=== PATIENT | male | born 1965 | race Caucasian/White ===

== ENCOUNTER 2018-10-15 12:22 | Emergency (ER) | payer MEDICAID ==
[2018-10-15 13:22] LABS: HEMATOCRIT 45.4 % (42.0-52.0); HEMOGLOBIN 13.8 gm/dl (14.0-18.0); MEAN CELL VOLUME 95.8 fl (81-97); MEAN CORPUSCULAR HEMOGLOBIN 29.1 pg (27-33); MEAN CORPUSCULAR HGB CONC 30.4 g/dl (32-36); MEAN PLATELET VOLUME 9.8 fl (7.4-10.4); PLATELET COUNT 195 K/uL (130-400); RED BLOOD COUNT 4.74 M/uL (4.40-5.70); RED CELL DISTRIBUTION WIDTH 16.3 % (11.5-14.5); WHITE BLOOD COUNT W/O DIFF 7.9 K/uL (4.2-12.2)
[2018-10-15 13:32] LABS: INR 2.6; PROTHROMBIN TIME (PATIENT) 25.2 SECONDS (9.5-12.1)
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
--- NOTE | 2018-10-17 12:22 | US VENOUS DOPPLER REPORT ---
EXAM: ULTRASOUND VENOUS DOPPLER LOWER EXT RT HISTORY: DEEP VEIN THROMBOSIS. TECHNIQUE: Sonographic evaluation of the deep venous system of the right lower extremity was performed with the addition of Doppler, compression, and augmentation. FINDINGS: There is normal blood flow, compression, and augmentation identified in the deep venous system of the right lower extremity. IMPRESSION: NEGATIVE FOR DEEP VEIN THROMBOSIS IN THE RIGHT LOWER EXTREMITY. JOB NUMBER: [id number] MTDD
== END 2018-10-15 14:40 | disposition home or self-care (01) ==
LOC: ER 12:22
DX: L03.115 Cellulitis of right lower limb (principal); M79.661 Pain in right lower leg; E11.9 Type 2 diabetes mellitus without complications; J44.9 Chronic obstructive pulmonary disease, unspecified; I50.9 Heart failure, unspecified; I48.91 Unspecified atrial fibrillation; F17.210 Nicotine dependence, cigarettes, uncomplicated; Z79.01 Long term (current) use of anticoagulants
CPT/HCPCS: 85027; 85610; 99283; 99284

== ENCOUNTER 2018-11-30 18:55 | Emergency (ER) | payer MEDICAID ==
[2018-11-30] MEDS ORDERED: ACETAMINOPHEN 325 MG TAB PO ONE (19:33)
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
[2018-11-30] MEDS ORDERED: WARFARIN 5 MG TAB PO ONE (20:11)
--- NOTE | 2018-12-04 08:30 | RADIOLOGY REPORT ---
EXAM: CHEST, TWO VIEWS HISTORY: LOW OXYGEN. TECHNIQUE: Two views of the chest were obtained. No comparison examinations. FINDINGS: The patient has previously undergone median sternotomy and aortic and mitral valvuloplasty. There is mild cardiomegaly. The pulmonary vessels are not significantly distended. There are no effusions. There is no evidence of lobar infiltrate. There are no parenchymal masses. There is evidence of a left second rib fracture, likely remote. There are sclerotic changes in the right humeral head, either degenerative or post traumatic, but incompletely evaluated on the chest radiograph. IMPRESSION: POSTOPERATIVE CHANGE. CARDIOMEGALY WITHOUT OVERT FAILURE OR INFILTRATE. JOB NUMBER: [id number] [facility]
== END 2018-11-30 20:47 | disposition home or self-care (01) ==
LOC: ER 18:55
DX: R09.02 Hypoxemia (principal); G89.18 Other acute postprocedural pain; Z79.01 Long term (current) use of anticoagulants; Z95.2 Presence of prosthetic heart valve; I48.91 Unspecified atrial fibrillation; E11.9 Type 2 diabetes mellitus without complications; Z79.84 Long term (current) use of oral hypoglycemic drugs; F17.200 Nicotine dependence, unspecified, uncomplicated; J44.9 Chronic obstructive pulmonary disease, unspecified
CPT/HCPCS: 71046; 84484; 93005; 93010; 94760; 99284

== ENCOUNTER 2019-02-07 18:16 | Emergency (ER) | payer MEDICAID ==
[2019-02-07] MEDS ORDERED: 0.9 % SODIUM CHLORIDE 1000ML 500 ML IV SCH (18:30)
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
[2019-02-07 18:35] LABS: BASO % 0.4 % (0-6); EOS % 3.9 % (0-6); GRAN % 71.9 % (47-80); HEMATOCRIT 47.1 % (42.0-52.0); HEMOGLOBIN 14.9 gm/dl (14.0-18.0); LYMPH % 13.9 % (16-45); MEAN CELL VOLUME 95.3 fl (81-97); MEAN CORPUSCULAR HEMOGLOBIN 30.2 pg (27-33); MEAN CORPUSCULAR HGB CONC 31.6 g/dl (32-36); MEAN PLATELET VOLUME 9.8 fl (7.4-10.4); MONO % 9.9 % (0-9); PLATELET COUNT 202 K/uL (130-400); RED BLOOD COUNT 4.94 M/uL (4.40-5.70); RED CELL DISTRIBUTION WIDTH 16.1 % (11.5-14.5)
[2019-02-07 18:49] LABS: INR 1.9; PROTHROMBIN TIME (PATIENT) 18.5 SECONDS (9.5-12.1)
[2019-02-07 18:50] LABS: BLOOD UREA NITROGEN 23 mg/dL (6-20); CREATININE 1.3 mg/dL (0.7-1.2); EST GLOMERULAR FILTRATION RATE > 60 mL/min
[2019-02-07 18:51] LABS: TOTAL PROTEIN 7.4 g/dL (6.6-8.7)
[2019-02-07 18:53] LABS: GLUCOSE,RANDOM 128 mg/dL (74-109)
[2019-02-07 18:56] LABS: ALB/GLOB RATIO 1.3 (1.1-1.8); ALBUMIN 4.2 g/dL (4.0-5.0); ALKALINE PHOSPHATASE 75 U/L (40-129); ALT/SGPT 14 U/L (<41); AST/SGOT 22 U/L (10.0-50.0)
--- NOTE | 2019-02-11 10:25 | RADIOLOGY REPORT ---
EXAM: CHEST, TWO VIEWS HISTORY: ELEVATED PULSE. TECHNIQUE: PA and lateral views of the chest were obtained. Comparison: Two view chest 11/30/18. FINDINGS: Postop sternotomy with valve prosthesis as before. Stable cardiomegaly. Lower thoracic dextroscoliosis. No definite acute infiltrate seen and no pleural effusion or pneumothorax evident. Advanced degenerative arthritis right shoulder and less prominent degenerative arthritis left shoulder. IMPRESSION: 1. POSTOP STERNOTOMY WITH VALVE PROSTHESES. 2. THORACIC DEXTROSCOLIOSIS. 3. STABLE CARDIOMEGALY. 4. NO ACUTE INFILTRATE IDENTIFIED. [facility]BER: [id number] [facility]
--- NOTE | 2019-02-11 10:54 | CT ANGIOGRAM REPORT ---
EXAM: CTA OF THE CHEST FOR PE WITH POST PROCESSING HISTORY: TACHYCARDIA, POSSIBLE PE. TECHNIQUE: CTA of the chest was performed following IV contrast administration. Please see the medial record for IV contrast specifics. Post processing on an independent workstation was performed with multiple 3D MIP series obtained. Comparison: No prior chest CT. Comparison is made with the chest x-ray from earlier this evening on 02/07/19. FINDINGS: There is some mild motion artifact effecting the peripheral pulmonary arterial tree in the lower lungs particularly on the left. Allowing for this, no definite PE identified. There is mild aneurysmal dilatation of the ascending aorta measuring up to about 4.2 cm in size. The descending thoracic aorta does not appear aneurysmally dilated. 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 Some coronary artery calcification is present. There is a small amount of fluid in the superior pericardial recess. Mild cardiomegaly. There are probably prosthetic mitral and aortic valves creatic artifact. Postop sternotomy. No pneumothorax is seen. No acute alveolar infiltrate identified. Advanced degenerative arthritis at the right glenohumeral joint and less so at the left glenohumeral joint. Lower thoracic dextroscoliosis with hypertrophic spurring in the spine. IMPRESSION: 1. NO DEFINITE PE IDENTIFIED. 2. MILD ANEURYSMAL DILATATION OF THE ASCENDING AORTA. 3. POSTOP STERNOTOMY WITH PROSTHETIC AORTIC AND MITRAL VALVES. 4. SOME CORONARY ARTERY CALCIFICATION. 5. THORACIC DEXTROSCOLIOSIS WITH DEGENERATIVE CHANGE IN THE SPINE. 6. ANOMALOUS RIGHT SUBCLAVIAN ARTERY INCIDENTALLY NOTED. JOB NUMBER: [id number] [facility]
== END 2019-02-07 21:22 | disposition home or self-care (01) ==
LOC: ER 18:16
DX: T40.7X5A Adverse effect of cannabis (derivatives), initial encounter (principal); R00.2 Palpitations; I10 Essential (primary) hypertension; E11.9 Type 2 diabetes mellitus without complications; I50.9 Heart failure, unspecified; I48.91 Unspecified atrial fibrillation; F17.210 Nicotine dependence, cigarettes, uncomplicated; Z79.01 Long term (current) use of anticoagulants
CPT/HCPCS: 99284 ×2; 85025; 85610; 80053; 84484; 83880; 71046; 71275; 93005; 93010; Q9967; J7030

== ENCOUNTER 2019-03-27 14:08 | Inpatient (IN) | payer SELFPAY ==
[2019-03-27] MEDS ORDERED: IPRATROPIUM/ALBUTEROL (0.5MG/3MG) NEB INH ONE (15:10)
[2019-03-27] MEDS ORDERED: ASPIRIN 81 MG CHEWABLE TABLET PO ONE (15:46)
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
[2019-03-27] MEDS ORDERED: METHYLPREDNISOLONE PF 125MG/VIAL IVP ONE (15:53)
[2019-03-27 16:10] LABS: ABSOLUTE NEUTROPHIL COUNT 3.63; BASO % 0.4 % (0-6); GRAN % 69.5 % (47-80); HEMATOCRIT 49.3 % (42.0-52.0); HEMOGLOBIN 15.7 gm/dl (14.0-18.0); LYMPH % 16.5 % (16-45); MEAN CELL VOLUME 93.4 fl (81-97); MEAN CORPUSCULAR HEMOGLOBIN 29.7 pg (27-33); MEAN CORPUSCULAR HGB CONC 31.8 g/dl (32-36); MEAN PLATELET VOLUME 10.5 fl (7.4-10.4); MONO % 9.6 % (0-9); PLATELET COUNT 216 K/uL (130-400); RED BLOOD COUNT 5.28 M/uL (4.40-5.70); RED CELL DISTRIBUTION WIDTH 14.6 % (11.5-14.5); WHITE BLOOD COUNT W/O DIFF 5.2 K/uL (4.2-12.2)
[2019-03-27 16:21] LABS: BLOOD UREA NITROGEN 25 mg/dL (6-20); CREATININE 1.5 mg/dL (0.7-1.2); EST GLOMERULAR FILTRATION RATE 52 mL/min
[2019-03-27 16:24] LABS: GLUCOSE,RANDOM 130 mg/dL (74-109)
[2019-03-27 16:27] LABS: PARTIAL THROMBOPLASTIN TIME 53.2 SECONDS (24.5-39.1); PROTHROMBIN TIME (PATIENT) 39.1 SECONDS (9.5-12.1)
[2019-03-27] MEDS ORDERED: AZITHROMYCIN 500 MG TABLET PO ONE (18:35)
[2019-03-27] MEDS ORDERED: CEFTRIAXONE SODIUM 2 GM in 0.9 % SODIUM CHLORIDE 100ML 100 ML IVPB ONE (18:35)
[2019-03-27] MEDS ORDERED: 0.9 % SODIUM CHLORIDE 1000ML 1,000 ML IV PRN (19:42)
[2019-03-27] MEDS ORDERED: ACETAMINOPHEN 325 MG TAB PO PRN (19:42)
[2019-03-27] MEDS: CALCIUM CARBONATE 500 MG TAB.CHEW PO SCH (21:41)
[2019-03-27] MEDS: POTASSIUM CHLORIDE 20 MEQ TABLET PO SCH (21:41)
[2019-03-27] MEDS: GABAPENTIN 100 MG CAPSULE PO SCH (21:42)
[2019-03-27] MEDS: METOPROLOL SUCC 50 MG TABLET PO SCH (21:42)
[2019-03-27] MEDS: GABAPENTIN 300 MG CAPSULE PO SCH (21:42)
[2019-03-27] MEDS: FERROUS SULFATE 325 MG TAB PO SCH (21:42)
[2019-03-27] MEDS: HYDROCODONE/APAP 7.5/325MG TABLET PO PRN (21:42)
[2019-03-27] MEDS: METFORMIN 500 MG TABLET PO SCH (21:45)
[2019-03-27] MEDS ORDERED: CEFTRIAXONE SODIUM 1 GM in 0.9 % SODIUM CHLORIDE 100ML 100 ML IVPB SCH (22:00)
[2019-03-27] MEDS: IPRATROPIUM/ALBUTEROL (0.5MG/3MG) NEB INH SCH (22:36)
[2019-03-27] MEDS: METHYLPREDNISOLONE PF 125MG/VIAL IVP SCH (23:04)
[2019-03-28] MEDS: IPRATROPIUM/ALBUTEROL (0.5MG/3MG) NEB INH SCH ×5 (06:08→21:33)
[2019-03-28 07:12] LABS: HEMOGLOBIN 14.8 gm/dl (14.0-18.0); MEAN CELL VOLUME 93.3 fl (81-97); MEAN CORPUSCULAR HGB CONC 32.2 g/dl (32-36); MEAN PLATELET VOLUME 9.9 fl (7.4-10.4); PLATELET COUNT 218 K/uL (130-400); RED BLOOD COUNT 4.93 M/uL (4.40-5.70); RED CELL DISTRIBUTION WIDTH 14.3 % (11.5-14.5); WHITE BLOOD COUNT W/O DIFF 4.1 K/uL (4.2-12.2)
[2019-03-28 07:31] LABS: INR 3.4; PROTHROMBIN TIME (PATIENT) 33.1 SECONDS (9.5-12.1)
[2019-03-28 07:34] LABS: ALB/GLOB RATIO 1.3 (1.1-1.8); BILIRUBIN,TOTAL 0.2 mg/dL (0.2-1.0); CREATININE 1.7 mg/dL (0.7-1.2); TOTAL PROTEIN 7.2 g/dL (6.6-8.7)
[2019-03-28] MEDS: METFORMIN 500 MG TABLET PO SCH ×2 (08:35→18:01)
[2019-03-28] MEDS: METHYLPREDNISOLONE PF 125MG/VIAL IVP SCH (09:42)
[2019-03-28] MEDS: TORSEMIDE 20 MG TABLET PO SCH (09:45)
[2019-03-28] MEDS: METOPROLOL SUCC 50 MG TABLET PO SCH ×2 (09:46→21:11)
[2019-03-28] MEDS: GABAPENTIN 300 MG CAPSULE PO SCH ×2 (09:47→21:11)
[2019-03-28] MEDS: POTASSIUM CHLORIDE 20 MEQ TABLET PO SCH ×2 (09:47→21:11)
[2019-03-28] MEDS: AZITHROMYCIN 500 MG TABLET PO SCH (09:47)
[2019-03-28] MEDS: CALCIUM CARBONATE 500 MG TAB.CHEW PO SCH ×2 (09:47→21:11)
[2019-03-28] MEDS: FERROUS SULFATE 325 MG TAB PO SCH ×2 (09:48→21:10)
[2019-03-28] MEDS: ASPIRIN 81 MG CHEWABLE TABLET PO SCH (09:48)
[2019-03-28] MEDS: GLIPIZIDE 5 MG TABLET PO SCH (09:48)
[2019-03-28] MEDS: GABAPENTIN 100 MG CAPSULE PO SCH ×3 (09:49→21:11)
[2019-03-28] MEDS: HYDROCODONE/APAP 7.5/325MG TABLET PO PRN ×2 (09:51→21:19)
[2019-03-28] MEDS ORDERED: CEFTRIAXONE 1GM/50ML BAG 1 GM/50 ML BAG IVPB SCH (10:00)
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
--- NOTE | 2019-03-28 12:26 | RADIOLOGY REPORT ---
EXAM: CHEST, TWO VIEWS HISTORY: DIFFICULTY IN BREATHING, COUGH. TECHNIQUE: PA and lateral views of the chest were obtained. Comparison: Two view chest 02/07/19. FINDINGS: Postop sternotomy as before with a couple valve prostheses again evident. Lower thoracic dextroscoliosis again evident. Stable cardiomegaly. There appears to be some mild progressive diffuse interstitial prominence. This could represent some mild interstitial edema or interstitial pneumonitis. No acute alveolar infiltrate seen. No pleural effusion or pneumothorax evident. Degenerative arthritis in both shoulders again seen. There may be some sclerosis in the humeral heads as well which can be seen with avascular necrosis. On the lateral view there is probably at least one abandoned epipericardial pacer wire present. IMPRESSION: 1. POSTOP CHANGES BEFORE. 2. DEGENERATIVE CHANGES IN THE SHOULDERS BEFORE POSSIBLY WITH AVASCULAR NECROSIS IN THE HUMERAL HEADS. 3. PROMINENT LOWER THORACIC DEXTROSCOLIOSIS BEFORE. 4. DIFFUSE INCREASE IN INTERSTITIAL PROMINENCE COMPARED TO THE PRIOR STUDY POSSIBLY REPRESENTING SOME MILD INTERSTITIAL EDEMA OR INTERSTITIAL PNEUMONITIS. CLINICAL CORRELATION IS SUGGESTED. 5. THERE ARE PROBABLY ABANDONED EPIPERICARDIAL PACER WIRES PRESENT. [facility] NUMBER: [id number] [facility]
[2019-03-28] MEDS ORDERED: WARFARIN 5 MG TAB PO SCH (20:15)
[2019-03-28] MEDS: CEFDINIR 300 MG CAPSULE PO SCH (21:10)
[2019-03-29] MEDS: IPRATROPIUM/ALBUTEROL (0.5MG/3MG) NEB INH SCH ×2 (06:07→10:16)
[2019-03-29 06:31] LABS: ABSOLUTE NEUTROPHIL COUNT 10.57; BASO % 0.1 % (0-6); HEMATOCRIT 43.8 % (42.0-52.0); HEMOGLOBIN 13.9 gm/dl (14.0-18.0); LYMPH % 5.2 % (16-45); MEAN CELL VOLUME 94.4 fl (81-97); MEAN CORPUSCULAR HGB CONC 31.7 g/dl (32-36); MONO % 6.9 % (0-9); PLATELET COUNT 236 K/uL (130-400); RED BLOOD COUNT 4.64 M/uL (4.40-5.70); RED CELL DISTRIBUTION WIDTH 14.8 % (11.5-14.5)
[2019-03-29 06:33] LABS: MEAN CORPUSCULAR HEMOGLOBIN 29.9 pg (27-33)
[2019-03-29 06:35] LABS: PROTHROMBIN TIME (PATIENT) 29.3 SECONDS (9.5-12.1)
[2019-03-29 06:40] LABS: ALB/GLOB RATIO 1.3 (1.1-1.8); ALBUMIN 3.8 g/dL (4.0-5.0); BILIRUBIN,TOTAL 0.2 mg/dL (0.2-1.0); CREATININE 1.5 mg/dL (0.7-1.2); TOTAL PROTEIN 6.7 g/dL (6.6-8.7)
[2019-03-29 06:48] LABS: ANISOCYTOSIS 1+; PLATELET ESTIMATE NORMAL (NORMAL); TOXIC GRANULATION 1+
[2019-03-29] MEDS ORDERED: PREDNISONE 20 MG TAB PO SCH (08:00)
[2019-03-29] MEDS: METFORMIN 500 MG TABLET PO SCH (08:12)
[2019-03-29] MEDS: TORSEMIDE 20 MG TABLET PO SCH (09:13)
[2019-03-29] MEDS: ASPIRIN 81 MG CHEWABLE TABLET PO SCH (09:14)
[2019-03-29] MEDS: CALCIUM CARBONATE 500 MG TAB.CHEW PO SCH (09:14)
[2019-03-29] MEDS: GABAPENTIN 300 MG CAPSULE PO SCH (09:14)
[2019-03-29] MEDS: METOPROLOL SUCC 50 MG TABLET PO SCH (09:14)
[2019-03-29] MEDS: AZITHROMYCIN 500 MG TABLET PO SCH (09:15)
[2019-03-29] MEDS: POTASSIUM CHLORIDE 20 MEQ TABLET PO SCH (09:15)
[2019-03-29] MEDS: FERROUS SULFATE 325 MG TAB PO SCH (09:15)
[2019-03-29] MEDS: GABAPENTIN 100 MG CAPSULE PO SCH (09:15)
[2019-03-29] MEDS: CEFDINIR 300 MG CAPSULE PO SCH (09:15)
[2019-03-29] MEDS: GLIPIZIDE 5 MG TABLET PO SCH (09:15)
[2019-03-29] MEDS: HYDROCODONE/APAP 7.5/325MG TABLET PO PRN (09:21)
--- NOTE | 2019-03-29 09:55 | Discharge Summary ---
Providers Discharge Summary Date: 03/29/19 Date of admission: 03/27/19 19:33 Expected Date of Discharge: 03/29/19 Attending physician: NYLA ANGUIANO Primary care physician: VALENCIA ALATORRE D.O. Consults: Consult Orders 03/27/19 21:12 Consult - Cardiology NOW Consulting Provider: [facility] GHOSH Physician Instructions: Reason For Exam: recent valve replacement, a fib Does pt have current mysql dba?: Other Comment: 03/28/19 10:56 Sustainability Director [Consult - Case Management] NOW Comment: Reason For Exam: uninsured Physical Exam - Vital Signs Vital Signs: Vital Signs - Last 24 Hrs Temp Pulse Pulse Resp BP Pulse Ox 03/29/19 08:24 97.5 F L 77 18 110/60 94 L 03/29/19 06:07 80 20 94 L 03/29/19 06:00 97.8 F 76 16 108/60 94 L 03/29/19 01:33 98.2 F 86 16 88/44 94 L 03/28/19 21:33 88 20 95 03/28/19 21:22 98.1 F 87 16 116/60 97 03/28/19 18:30 99.0 F 88 15 108/53 99 03/28/19 18:15 88 18 93 L 03/28/19 14:18 91 H 24 96 03/28/19 14:15 86 24 96 03/28/19 14:00 99.3 F 44 L 16 110/58 96 03/28/19 10:19 84 18 93 L - General General Appearance: Alert, Oriented x3, Cooperative, No acute distress - Head Head exam: Normal inspection - Eye Eye exam: Normal appearance, PERRL Pupils: Normal accommodation - ENT ENT exam: Normal exam, Mucous membranes moist, Normal external ear exam, Normal orophraynx, TM's normal bilaterally Ear exam: Normal external inspection. negative: External canal tenderness Nasal Exam: Normal inspection. negative: Discharge, Sinus tenderness Mouth exam: Normal external inspection, Tongue normal Teeth exam: Normal inspection. negative: Dental caries Throat exam: Normal inspection. negative: Tonsillar erythema, Tonsillar exudate - Neck Neck exam: Normal inspection, Full ROM. negative: Tenderness - Respiratory Respiratory exam: Decreased breath sounds - Cardiovascular Cardiovascular Exam: Regular rate, Normal rhythm, Normal heart sounds (audible mechanical valves) - GI/Abdominal GI/Abdominal exam: Soft, Normal bowel sounds. negative: Tenderness - Rectal Rectal exam: Deferred - exam: Deferred - Extremities Extremities exam: Normal inspection, Full ROM, Normal capillary refill. negative: Tenderness - Back Back exam: Reports: Normal inspection, Full ROM. Denies: Muscle spasm, Rash noted, Tenderness - Neurological Neurological exam: Alert, Normal gait, Oriented X3, Reflexes normal - Psychiatric Psychiatric exam: Normal affect, Normal mood - Skin Skin exam: Dry, Intact, Normal color, Warm Hospitalization - Hospitalization Admission Diagnosis: pneumonia bilateral - Problem List/Discharge Diagnosis (1) Pneumonia Current Visit: Yes Status: Acute Discharge Diagnosis: Pneumonia type: due to unspecified organism Laterality: bilateral Lung location: unspecified part of lung Qualified Code(s): J18.9 - Pneumonia, unspecified organism Base Code: J18.9 - PNEUMONIA, UNSPECIFIED ORGANISM Comment: 03/29/19: -Bilateral infiltrates on CXR -Zithromax 500mg daily, cefdinir 300mg bid, prednisone 40mg daily -94% on room air (2) History of aortic valve replacement Current Visit: Yes Status: Acute Base Code: Z95.2 - PRESENCE OF PROSTHETIC HEART VALVE Comment: 03/29/19: -Stable per cardiology, recommend INR 2.5-3.5 (3) History of mitral valve replacement Current Visit: Yes Status: Acute Base Code: Z95.2 - PRESENCE OF PROSTHETIC HEART VALVE Comment: 03/28/19: -Stable per cardiology, continue coumadin 10mg daily, recommend INR 2.5-3.5 (4) H/O tricuspid valve repair Current Visit: Yes Status: Acute Base Code: Z98.890 - OTHER SPECIFIED POSTPROCEDURAL STATES Comment: 03/29/19: -Stable per cardiology, continue coumadin 10mg daily, recommend INR 2.5-3.5 (5) At risk for deep venous thrombosis Current Visit: Yes Status: Acute Base Code: Z91.89 - OTH PERSONAL RISK FACTORS, NOT ELSEWHERE CLASSIFIED Comment: 03/29/19: -High risk for DVT (mechanical aortic and mitral valve) -Coumadin 10mg daily, INR today 3.0 (6) Full code status Current Visit: Yes Status: Acute Base Code: Z78.9 - OTHER SPECIFIED HEALTH STATUS Comment: 03/29/19: -Pt. is a full code - Hospitalization Course Disposition: Home, Self-Care Hospital Course: Mr. Aleman presented to the ED on 03/27/19 with c/o SOB, cough and congestion, fever and sweats. He stated his symptoms began 1 week prior. He stated that he has a hx of COPD and had open heart surgery at 07/2018 (aortic and mitral valve replacement with mechanical valves and tricuspid valve repair, septoplasty). His history includes: every day smoker, AUBRIE- no c-pap, cardiac cath x2, CHF, a-fib, GERD, DM, and arthritis. In the ED, BP was 122/74, HR 85, R 98.9D, 85% on room air. Labs were neg for acute process. Chest xray revealed bilateral lung infiltrates. He was admitted for treatment of pneumonia with IV abx, steroids, resp treatments, and consult cardiology with extensive cardiac history and recent surgery. 03/28/19: Pt. is sitting up in bed, he reports improvement in his shortness of breath and cough this morning. He mentions that he is concerned about being uninsured and wants to be d/c'd home today for financial reasons. Referral to case management ordered. Labs and VS stable- 93% on 2L NC. Will change IV abx and steroids to PO today. 03/29/19: Pt. is sitting up in bed, he continues to report improved symptoms. His oxygen is 94% on room air, he is tolerating PO abx and steroids, and labs are stable. Dr. Ghosh ([facility]) saw pt yesterday and does not recommend any changes, stable from cardiac standpoint. Will d/c home today. PCP: Dr. Alatorre Phone Counselor: DEE Cardiac surgeon: Procedures: Imaging and X-Rays 03/27/19 17:30 CHEST 2 VIEWS [RAD] Stat Cardiology Procedures 03/27/19 15:46 EKG NOW 03/27/19 19:42 Supervisor Stitching Department .Continuous 03/27/19 21:07 Echo W/CF & Cardiac Doppler ONCE Abnormal Labs: Abnormal Lab Results 03/27/19 03/27/19 03/27/19 Range/Units 15:10 15:10 15:10 WBC (4.2-12.2) K/uL Hgb (14.0-18.0) gm/dl MCHC 31.8 L (32-36) g/dl RDW 14.6 H (11.5-14.5) % MPV 10.5 H (7.4-10.4) fl Neutrophils % (47-80) % Lymphocytes % (16-45) % Monocytes % 9.6 H (0-9) % Lymphocytes (16-45) % PT 39.1 H (9.5-12.1) SECONDS APTT 53.2 H (24.5-39.1) SECONDS Chloride 93 L (98-107) mmol/L Carbon Dioxide 35.0 H (22-29) mmol/L BUN 25 H (6-20) mg/dL Creatinine 1.5 H (0.7-1.2) mg/dL POC Glucose (70-110) mg/dL Random Glucose 130 H (74-109) mg/dL Albumin (4.0-5.0) g/dL 03/27/19 03/28/19 03/28/19 Range/Units 22:00 06:00 07:00 WBC (4.2-12.2) K/uL Hgb (14.0-18.0) gm/dl MCHC (32-36) g/dl RDW (11.5-14.5) % MPV (7.4-10.4) fl Neutrophils % (47-80) % Lymphocytes % (16-45) % Monocytes % (0-9) % Lymphocytes (16-45) % PT 33.1 H (9.5-12.1) SECONDS APTT (24.5-39.1) SECONDS Chloride 94 L (98-107) mmol/L Carbon Dioxide 31.0 H (22-29) mmol/L BUN 34 H (6-20) mg/dL Creatinine 1.7 H (0.7-1.2) mg/dL POC Glucose 161 H (70-110) mg/dL Random Glucose 306 H (74-109) mg/dL Albumin (4.0-5.0) g/dL 03/28/19 03/29/19 03/29/19 Range/Units 07:00 06:15 06:15 WBC 4.1 L (4.2-12.2) K/uL Hgb 13.9 L (14.0-18.0) gm/dl MCHC 31.7 L (32-36) g/dl RDW 14.8 H (11.5-14.5) % MPV (7.4-10.4) fl Neutrophils % 93.0 H 89.0 H (47-80) % Lymphocytes % 5.2 L (16-45) % Monocytes % (0-9) % Lymphocytes 6.0 L 3.0 L (16-45) % PT 29.3 H (9.5-12.1) SECONDS APTT (24.5-39.1) SECONDS Chloride (98-107) mmol/L Carbon Dioxide (22-29) mmol/L BUN (6-20) mg/dL Creatinine (0.7-1.2) mg/dL POC Glucose (70-110) mg/dL Random Glucose (74-109) mg/dL Albumin (4.0-5.0) g/dL 03/29/19 Range/Units 06:15 WBC (4.2-12.2) K/uL Hgb (14.0-18.0) gm/dl MCHC (32-36) g/dl RDW (11.5-14.5) % MPV (7.4-10.4) fl Neutrophils % (47-80) % Lymphocytes % (16-45) % Monocytes % (0-9) % Lymphocytes (16-45) % PT (9.5-12.1) SECONDS APTT (24.5-39.1) SECONDS Chloride 95 L (98-107) mmol/L Carbon Dioxide 33.0 H (22-29) mmol/L BUN 40 H (6-20) mg/dL Creatinine 1.5 H (0.7-1.2) mg/dL POC Glucose (70-110) mg/dL Random Glucose 180 H (74-109) mg/dL Albumin 3.8 L (4.0-5.0) g/dL Condition at Discharge: (2) Stable VTE Discharge VTE Reason For No Overlap Therapy: Not Indicated (on coumadin) Discharge Medications - Discharge Medications Prescriptions: Cefdinir 300 mg PO BID #7 capsule Prednisone [Prednisone 20Mg] 40 mg PO DAILYWM 3 Days #6 tab Azithromycin [Zithromax] 500 mg PO DAILY #3 tab Home Medications: Ambulatory Orders Warfarin Sodium 10 mg PO DAILY 10/15/18 [Last Taken 02/07/19] Aspirin 81 mg PO DAILY 11/30/18 [Last Taken 02/07/19] Calcium Carbonate [Calcium] 500 mg PO BID 11/30/18 [Last Taken 02/07/19] Ferrous Sulfate 325 mg PO BID 11/30/18 [Last Taken 02/07/19] Gabapentin [Neurontin] 800 mg PO BID 11/30/18 [Last Taken 02/07/19] Glipizide 5 mg PO DAILY 11/30/18 [Last Taken 02/07/19] Hydrocodone/Acetaminophen [Toxey 7.5mg/325mg] 1 tab PO Q8H PRN 11/30/18 [Last Taken 02/07/19] Metformin HCl [Glucophage] 1,000 mg PO BID 11/30/18 [Last Taken 02/07/19] Metoprolol Succinate [Toprol Xl] 100 mg PO BID 11/30/18 [Last Taken 02/07/19] Potassium Chloride 20 meq PO BID 11/30/18 [Last Taken 02/07/19] Torsemide 60 mg PO DAILY 11/30/18 [Last Taken 02/07/19] Azithromycin [Zithromax] 500 mg PO DAILY #3 tab 03/29/19 [Last Taken Unknown] Cefdinir 300 mg PO BID #7 capsule 03/29/19 [Last Taken Unknown] Prednisone [Prednisone 20Mg] 40 mg PO DAILYWM 3 Days #6 tab 03/29/19 [Last Taken Unknown] Discharge Plan - Discharge Instructions Activity at Discharge: Increase Activity as Tolerated Diet at Discharge: Regular Diet Additional Instructions: Follow up with your PCP in 7-10 days Return to the ED if your symptoms worsen (fever, decreased appetite, cough, any chest pain) Quality Measures - Quality Measures Quality Measures: Documentation of Current Medications in Medical Record, Screening for High Blood Pressure and F/U Documented - Current Medications Quality Measure: Measure #130: Documentation of Current Medications Documentation of Current Medications: <Current Medications Documented/Reviewed> [[id number]] - Blood Pressure Screening Quality Measure: Screening for High Blood Pressure and Follow-Up Documented Does Patient Have Any of the Following: Active Dx of HTN Blood Pressure Classification: Pre-Hypertensive BP Reading Systolic Measurement: 122 Diastolic Measurement: 74 Screening for High Blood Pressure: Patient Exclusion, Hx of HTN [G9744] - Elder Abuse Suspicion Index EASI Reference Information: Jorge MCLAUGHLIN, Jj Mace, Ligia Kidd, Jacques Olson.Development and validation of a tool to assist physicians identification of elder abuse: The Elder Abuse Suspicion Index (EASI ). Journal of Elder Abuse and Neglect, 2008; 20 (3): 276-300.
== END 2019-03-29 10:40 | disposition home or self-care (01) | DRG 194 ==
LOC: ER 14:08 → MEDSURG 19:33
PROVIDERS: ADMIT Internal Medicine; ATTEND Internal Medicine
DX: J18.9 Pneumonia, unspecified organism (principal); J44.0 Chronic obstructive pulmonary disease with (acute) lower respiratory infection; I50.9 Heart failure, unspecified; I48.2 Chronic atrial fibrillation; Z79.01 Long term (current) use of anticoagulants; E11.9 Type 2 diabetes mellitus without complications; K21.9 Gastro-esophageal reflux disease without esophagitis; M19.90 Unspecified osteoarthritis, unspecified site; F17.210 Nicotine dependence, cigarettes, uncomplicated; Z98.61 Coronary angioplasty status; Z95.2 Presence of prosthetic heart valve
CPT/HCPCS: 36416; 71046; 80048; 80053; 82948; 84484; 85025; 85027; 85379; 85610; 85730; 93005; 93010; 94640; 94760; 94761; 96365; 96372; 99223; 99239; 99285; J0696; J2930; J7512